=== PATIENT | male | born 1955 | race African-American/Black ===

== ENCOUNTER 2017-04-14 12:22 | Inpatient (IN) | payer BC, OTHER ==
[2017-04-14] MEDS ORDERED: NORCO 10/325 TAB PO PRN (12:38)
--- NOTE | 2017-04-14 12:42 | DR.H&P ---
H&P - History & Physical for Day of: H&P Date: 04/14/17 - Chief Complaint Chief Complaint: RIGHT EAR PAIN, FACILA SWELLING AND REDNESS - History of Present Illness History of Present Illness: PATIENT IS A 61-YEAR-OLD BLACK MALE WHO WAS A DIRECT ADMIT FROM dR. Cool'S OFFICE AFTER PRESENTING FOR FOLLOW-UP WITH A RIGHT EAR INFECTION. pATIENT WAS SEEN ON 04/01 WITH RIGHT OTITIS MEDIA AND OTITIS EXTERNA WITH PRE-AND POSTAURICULAR LYMPH NODE ENLARGEMENT. pATIENT WAS TREATED WITH im rOCEPHIN BY MOUTH cIPRO AND BY MOUTH STEROIDS WITHOUT IMPROVEMENT. tHE PATIENT FOLLOW-UP TODAY HE HAD A SIGNIFICANT AREA OF SWELLING TO THE RIGHT JAW AND RIGHT CHEEK WITH LOCALIZED REDNESS AND WARMTH. pLAN TO ADMIT FOR iv ANTIBIOTICS LABS AND BLOOD CULTURES WELL A CULTURE OF RIGHT EAR DRAINAGE. PLAN TO START HER ON iv lEVAQUIN AND zOSYN AND OBTAIN A ct OF THE FACIAL BONES - Past Medical History Past Medical History: Hypertension - Social History Does patient currently use any type of tobacco product: Yes Have you used tobacco products in the last 12 months: Yes Type of Tobacco Use: Cigarettes Does any household member use tobacco: No Alcohol Use: None Drug Use: None - Review of Systems Constitutional: Fever Eyes: No Symptoms Reported ENT: Ear Pain, Ear Discharge, Throat Swelling Respiratory: Cough Cardiovascular: No Symptoms Reported Gastrointestinal: No Symptoms Reported Genitourinary: No Symptoms Reported Musculoskeletal: No Symptoms Reported Skin: Other (REDNESS TO RIGHT CHECK, MILD CRUSTING TO RIGHT EARLOBE WITH WEEPING ) Neurological: No Symptoms Reported Oriented: Normal Eyes: Normal Ear: Right (RIGHT EAR EXTERNAL CANAL EDEMATOUS, REDNESS WITH PRE-POST ARURICULAR LYMPH NODE ENLARGEMENT), Swelling Respiratory: Rhonchi Throughout Cardiovascular: Normal : Normal Auscultation: Bowel Sounds: Normal Palpation: Normal Tenderness: Normal Skin: Normal, Red, Tender, Other (SEE ENT, RIGHT EAR ) Musculoskeletal: Normal Psychiatric: Normal Mood Description: Calm Speech Pattern: Clear, Appropriate - Assessment/Plan (1) Malignant otitis externa of right ear Qualifiers: Chronicity: C Status: Acute Plan: ADMIT FOR IV ATBX THERAPY. BLOOD AND WOUND CULTURES. PAIN CONTROL. CT FACIAL BONES (2) Facial cellulitis Status: Acute Plan: SEE ABOVE (3) Hypertension Qualifiers: Hypertension type: H Status: Acute Plan: CONTINUE HOME MEDS (4) Bronchitis Status: Acute Plan: IV ATBX, CXR ON ADMISSION
[2017-04-14] MEDS ORDERED: NS 100 ML IV + SPIKE MINIBAG* 100 ML IV ONE ×2 (13:56→22:32)
[2017-04-14 13:59] VITALS: BMI 39.3
[2017-04-14] MEDS: NORCO 10/325 TAB PO PRN ×2 (14:02→19:27)
[2017-04-14 14:04] LABS: BASOPHILS # (AUTO) 0.1 X10^3/uL (0.0-0.1); BASOPHILS % (AUTO) 0.5 % (0.2-1.0); EOSINOPHILS # (AUTO) 0.6 x10^3/uL (0.0-0.2); EOSINOPHILS % (AUTO) 4.5 % (0.9-2.9); HEMATOCRIT 39.6 % (42.0-54.0); HEMOGLOBIN 13.3 g/dL (13.5-18.0); LYMPHOCYTES # (AUTO) 2.8 X10^3/uL (1.3-2.9); LYMPHOCYTES % (AUTO) 22.5 % (21.0-51.0); MEAN CORPUSCULAR HEMOGLOBIN 29.5 pg (27.0-34.0); MEAN CORPUSCULAR HGB CONC 33.5 g/dL (33.0-35.0); MONOCYTES # (AUTO) 0.9 x10^3/uL (0.3-0.8); MONOCYTES % (AUTO) 7.5 % (0.0-13.0); PLATELET COUNT 343 X10^3/uL (150.0-450.0); RED CELL DISTRIBUTION WIDTH 13.7 % (11.6-16.5); WHITE BLOOD COUNT 12.3 X10^3/uL (3.6-10.0)
[2017-04-14 14:08] LABS: ALANINE AMINOTRANSFERASE 23 Units/L (12-78); ALKALINE PHOSPHATASE 73 Units/L (46-116); ASPARTATE AMINO TRANSFERASE 17 Units/L (15-37); BLOOD UREA NITROGEN 12 mg/dL (7-18); CALCIUM 8.9 mg/dL (8.5-10.1); CARBON DIOXIDE 28.3 mmol/L (21-32); CHLORIDE 108 mmol/L (98-107); COR CA(FOR HYPOALB) 9.7 mg/dL (8.5-10.1); CREATININE 1.15 mg/dL (0.70-1.30); GLUCOSE 95 mg/dL (65-99); SODIUM 143 mmol/L (136-145); TOTAL PROTEIN 6.7 g/dL (6.4-8.2); eGFR BLACK RACES > 60 (>60); eGFR NON BLACK RACES > 60 (>60)
--- NOTE | 2017-04-14 14:30 | CT ---
HISTORY: Right facial edema Study: Maxillofacial CT without con Comparison: None Technique : Axial non contrast images with coronal and sagittal reformats. Dose reduction procedures were use with MA/kv adjusted for body size. This examination is limited by the lack of intravenous contrast. Findings: There is skin thickening and subcutaneous fat stranding in the area of the right external auditory c anal and pre auricular area. This suggests otitis externa with some associated cellulitis. There are no drainable fluid collections identified. The remainder of the facial soft tissues are normal. The globes are intact. The retrobulbar are soft tissues are normal. The mandible, nasal bones, and faci al bones are intact as are the orbital bones. The sinuses are clear with the exception of a 1 centim eter left maxillary sinus retention cyst. The mastoid air cells are clear. The middle ear spaces are clear. The parotid glands are symmetric and normal. IMPRESSION: Findings suggestive of right-sided otitis externa with some adjacent early cellulitis. Reported By:
--- NOTE | 2017-04-14 14:34 | RAD ---
HISTORY: Cough, congestion Study: Chest one view Comparison: None Findings: The heart is within normal limits in size. The aorta is ectatic. The lungs are free of acute alveola r infiltrates. No pleural effusions are identified. There is some peribronchial thickening consisten t with bronchitis. IMPRESSION: Peribronchial thickening consistent with bronchitis Reported By:
[2017-04-14] MEDS: NS 1000 ML 1,000 ML IV SCH (14:36)
[2017-04-14] MEDS: LEVAQUIN PREMIX IV 750 MG 750 MG/150 ML BAG IV SCH (14:36)
[2017-04-14] MEDS: ZOSYN VIAL 4.5 GM IV SCH ×2 (16:23→22:37)
[2017-04-14] MEDS: PROVENTIL NEB TX 0.083% 2.5MG/ 3ML NEB PRN (16:31)
[2017-04-14] MEDS ORDERED: HYDROCHLOROTHIAZIDE 25 MG TAB ONE (17:33)
[2017-04-14] MEDS: HYDROCHLOROTHIAZIDE 25 MG TAB PO SCH (17:35)
[2017-04-14] MEDS: LOPRESSOR TAB 50 MG PO SCH (17:35)
[2017-04-14] MEDS: COLACE CAP 100 MG PO SCH (20:57)
[2017-04-14] MEDS ORDERED: COLACE CAP 100 MG PO SCH (21:00)
[2017-04-15] MEDS: NORCO 10/325 TAB PO PRN ×3 (02:36→20:36)
[2017-04-15] MEDS: NS 1000 ML 1,000 ML IV SCH ×2 (02:37→20:42)
[2017-04-15] MEDS ORDERED: NS 100 ML IV + SPIKE MINIBAG* 100 ML IV ONE (05:52)
[2017-04-15] MEDS: ZOSYN VIAL 4.5 GM IV SCH (06:04)
[2017-04-15 06:24] LABS: BASOPHILS # (AUTO) 0.1 X10^3/uL (0.0-0.1); BASOPHILS % (AUTO) 0.5 % (0.2-1.0); EOSINOPHILS # (AUTO) 0.7 x10^3/uL (0.0-0.2); EOSINOPHILS % (AUTO) 5.4 % (0.9-2.9); HEMATOCRIT 39.1 % (42.0-54.0); HEMOGLOBIN 12.9 g/dL (13.5-18.0); LYMPHOCYTES # (AUTO) 3.1 X10^3/uL (1.3-2.9); LYMPHOCYTES % (AUTO) 24.7 % (21.0-51.0); MEAN CORPUSCULAR HEMOGLOBIN 29.2 pg (27.0-34.0); MEAN CORPUSCULAR HGB CONC 32.9 g/dL (33.0-35.0); MEAN CORPUSCULAR VOLUME 88.8 fL (80.0-100.0); MEAN PLATELET VOLUME 7.4 fL (7.4-11.0); MONOCYTES # (AUTO) 0.8 x10^3/uL (0.3-0.8); MONOCYTES % (AUTO) 6.8 % (0.0-13.0); NEUTROPHILS # (AUTO) 7.8 x10^3/uL (2.2-4.8); NEUTROPHILS % (AUTO) 62.6 % (42.0-75.0); PLATELET COUNT 308 X10^3/uL (150.0-450.0); RED CELL DISTRIBUTION WIDTH 13.6 % (11.6-16.5); WHITE BLOOD COUNT 12.4 X10^3/uL (3.6-10.0)
[2017-04-15 06:39] LABS: ALANINE AMINOTRANSFERASE 20 Units/L (12-78); ALBUMIN 2.8 g/dL (3.4-5.0); ALKALINE PHOSPHATASE 72 Units/L (46-116); ASPARTATE AMINO TRANSFERASE 15 Units/L (15-37); BLOOD UREA NITROGEN 13 mg/dL (7-18); CALCIUM 8.5 mg/dL (8.5-10.1); CHLORIDE 108 mmol/L (98-107); COR CA(FOR HYPOALB) 9.5 mg/dL (8.5-10.1); COR NA(FOR HYPERGLY) 145 mmol/L (136-145); CREATININE 1.34 mg/dL (0.70-1.30); GLUCOSE 143 mg/dL (65-99); SODIUM 144 mmol/L (136-145); TOTAL PROTEIN 6.5 g/dL (6.4-8.2); eGFR BLACK RACES > 60 (>60); eGFR NON BLACK RACES 57 (>60)
[2017-04-15] MEDS ORDERED: K-RIDER 10 MEQ/NS 100 ML 10 MEQ/100 ML BAG IV PRN (06:47)
[2017-04-15] MEDS ORDERED: POTASSIUM CHLORIDE LIQ 20 MEQ UDC PO PRN (06:47)
[2017-04-15] MEDS ORDERED: K-LYTE EFFERVESCENT PO PRN (06:47)
[2017-04-15] MEDS: PROVENTIL NEB TX 0.083% 2.5MG/ 3ML NEB PRN (08:20)
[2017-04-15] MEDS: LOPRESSOR TAB 50 MG PO SCH ×2 (08:47→20:35)
[2017-04-15] MEDS: LEVAQUIN PREMIX IV 750 MG 750 MG/150 ML BAG IV SCH (08:47)
[2017-04-15] MEDS: HYDROCHLOROTHIAZIDE 25 MG TAB PO SCH (08:47)
[2017-04-15] MEDS: K-DUR TAB 20 MEQ PO PRN (08:54)
[2017-04-15] MEDS ORDERED: CONSULT PHARMACY - ANTIBIOTIC XX SCH (10:00)
[2017-04-15] MEDS: BACTROBAN OINT TOP SCH ×2 (11:08→20:42)
[2017-04-15] MEDS: NICODERM PATCH 21 MG/24 HR TD SCH (11:09)
[2017-04-15] MEDS: VANCOMYCIN HCL 500 MG VIAL 500 MG, VANCOMYCIN HCL 1 GM VIAL 1 GM in NS 250 ML IV 250 ML IV SCH ×2 (13:58→20:37)
--- NOTE | 2017-04-15 18:18 | PCM.PROG ---
Progress Note - Progress Note for Day of Date: 04/15/17 - Subjective Subjective: 61 BM ADMITTED ONE DAY AGO WITH SEVERE RIGHT OTITIS EXTERNA FACIAL CELLULITS, PT HAS PENDING WOUDN AND BLOOD CULTURES, PT CO PAIN TO RIGHT EAR. PLAN TO CONSULT PHARMACY FOR VANCOMYCIN IV DOSING, WITH CONTINUE WITH LEVAQUIN, D/C ZOSYN, TOPICAL BACTROBAN AFTER WOUND CARE. PLAN TO REPEAT AM LABS, CONTINUE BP CONTROL - Past Medical Family Social History Past Med/Fam/Surg Hx: No changes since H&P Allergies: Allergies Lisinopril Allergy (Verified 04/14/17 13:24) - Review of Systems ROS: No change since H&P - Vital Signs and I&O's Vital Signs: Temperature 98 F Pulse Rate [Left Brachial] 74 Pulse Rate [Right Brachial] 81 Pulse Rate 88 Respiratory Rate 20 Blood Pressure [Left Arm] 162/106 Blood Pressure [Right Arm] 164/85 O2 Sat by Pulse Oximetry 97 Intake and Output: Intake & Output 04/13/17 04/14/17 04/15/17 04/16/17 11:59 11:59 11:59 11:59 Intake Total 1710 960 Output Total 0 Balance 1710 960 - Physical Exam Oriented: Normal Eyes: Normal Ear: Right (RIGHT EAR EXTERNAL CANAL EDEMATOUS, REDNESS WITH PRE-POST ARURICULAR LYMPH NODE ENLARGEMENT), Swelling Respiratory: Wheezes (MILD EXP WHEEZE) Cardiovascular: Normal : Normal Auscultation: Bowel Sounds: Normal Tenderness: Normal Skin: Normal, Red, Tender, Other (SEE ENT, RIGHT EAR ) Musculoskeletal: Normal Psychiatric: Normal Mood Description: Calm Speech Pattern: Clear, Appropriate - Laboratory and Diagnostics Result Diagrams: 04/15/17 03:40 04/15/17 11:05 Labs: 04/14/17 14:44 Ear - Right Gram Stain - Final 04/14/17 14:44 Ear - Right Wound Culture - Preliminary Laboratory WBC 12.4 X10^3/uL (3.6-10.0) H 04/15/17 03:40 RBC 4.40 X10^6/uL (4.7-6.0) L 04/15/17 03:40 Hgb 12.9 g/dL (13.5-18.0) L 04/15/17 03:40 Hct 39.1 % (42.0-54.0) L 04/15/17 03:40 MCV 88.8 fL (80.0-100.0) 04/15/17 03:40 MCH 29.2 pg (27.0-34.0) 04/15/17 03:40 MCHC 32.9 g/dL (33.0-35.0) L 04/15/17 03:40 RDW 13.6 % (11.6-16.5) 04/15/17 03:40 Plt Count 308 X10^3/uL (150.0-450.0) 04/15/17 03:40 MPV 7.4 fL (7.4-11.0) 04/15/17 03:40 Neut % 62.6 % (42.0-75.0) 04/15/17 03:40 Lymph % 24.7 % (21.0-51.0) 04/15/17 03:40 [place] % 6.8 % (0.0-13.0) 04/15/17 03:40 Eos % 5.4 % (0.9-2.9) H 04/15/17 03:40 Baso % 0.5 % (0.2-1.0) 04/15/17 03:40 Neut # 7.8 x10^3/uL (2.2-4.8) H 04/15/17 03:40 Lymph # 3.1 X10^3/uL (1.3-2.9) H 04/15/17 03:40 [place] # 0.8 x10^3/uL (0.3-0.8) 04/15/17 03:40 Eos # 0.7 x10^3/uL (0.0-0.2) H 04/15/17 03:40 Baso # 0.1 X10^3/uL (0.0-0.1) 04/15/17 03:40 Absolute Nucleated RBC 0.0 /100WBC 04/15/17 03:40 Sodium 144 mmol/L (136-145) 04/15/17 03:40 Corrected Sodium 145 mmol/L (136-145) 04/15/17 03:40 Potassium 3.7 mmol/L (3.5-5.1) 04/15/17 11:05 Chloride 108 mmol/L (98-107) H 04/15/17 03:40 Carbon Dioxide 25.0 mmol/L (21-32) 04/15/17 03:40 BUN 13 mg/dL (7-18) 04/15/17 03:40 Creatinine 1.34 mg/dL (0.70-1.30) H 04/15/17 03:40 Est GFR (MDRD) Af Amer > 60 (>60) 04/15/17 03:40 Est GFR (MDRD) Non-Af 57 (>60) L 04/15/17 03:40 Glucose 143 mg/dL (65-99) H 04/15/17 03:40 Calcium 8.5 mg/dL (8.5-10.1) 04/15/17 03:40 Corrected Calcium 9.5 mg/dL (8.5-10.1) 04/15/17 03:40 Total Bilirubin 0.20 mg/dL (0.2-1.0) 04/15/17 03:40 AST 15 Units/L (15-37) 04/15/17 03:40 ALT 20 Units/L (12-78) 04/15/17 03:40 Alkaline Phosphatase 72 Units/L (46-116) 04/15/17 03:40 Total Protein 6.5 g/dL (6.4-8.2) 04/15/17 03:40 Albumin 2.8 g/dL (3.4-5.0) L 04/15/17 03:40 Globulin 3.7 g/dL (2.5-4.5) 04/15/17 03:40 Albumin/Globulin Ratio 0.8 Ratio (1.1-2.1) L 04/15/17 03:40 - Plan (1) Malignant otitis externa of right ear Status: Acute Qualifiers: Chronicity: C Plan: IV ATBX THERAPY. BLOOD AND WOUND CULTURES PENDING. PAIN CONTROL. CT FACIAL BONES ON CHART (2) Facial cellulitis Status: Acute Plan: SEE ABOVE (3) Hypertension Status: Acute Qualifiers: Hypertension type: H Plan: CONTINUE HOME MEDS (4) Bronchitis Status: Acute Plan: IV ATBX, CXR ON ADMISSION (5) Anxiety Status: Acute Plan: NICOTINE PATCH, XANAX PRN
[2017-04-15] MEDS ORDERED: NS 250 ML IV 250 ML IV ONE (20:25)
[2017-04-15] MEDS ORDERED: VANCOMYCIN HCL 500 MG VIAL ONE (20:25)
[2017-04-15] MEDS ORDERED: VANCOMYCIN HCL 1 GM VIAL ONE (20:26)
[2017-04-15] MEDS: COLACE CAP 100 MG PO SCH (20:35)
[2017-04-15] MEDS: XANAX PO PRN (20:36)
[2017-04-16 06:14] LABS: BASOPHILS # (AUTO) 0.1 X10^3/uL (0.0-0.1); BASOPHILS % (AUTO) 0.4 % (0.2-1.0); EOSINOPHILS # (AUTO) 0.7 x10^3/uL (0.0-0.2); EOSINOPHILS % (AUTO) 5.6 % (0.9-2.9); HEMATOCRIT 39.7 % (42.0-54.0); HEMOGLOBIN 13.4 g/dL (13.5-18.0); LYMPHOCYTES # (AUTO) 2.8 X10^3/uL (1.3-2.9); LYMPHOCYTES % (AUTO) 22.3 % (21.0-51.0); MEAN CORPUSCULAR HEMOGLOBIN 29.7 pg (27.0-34.0); MEAN CORPUSCULAR HGB CONC 33.9 g/dL (33.0-35.0); MEAN CORPUSCULAR VOLUME 87.7 fL (80.0-100.0); MEAN PLATELET VOLUME 7.6 fL (7.4-11.0); MONOCYTES # (AUTO) 0.8 x10^3/uL (0.3-0.8); MONOCYTES % (AUTO) 6.5 % (0.0-13.0); NEUTROPHILS # (AUTO) 8.1 x10^3/uL (2.2-4.8); NEUTROPHILS % (AUTO) 65.2 % (42.0-75.0); PLATELET COUNT 312 X10^3/uL (150.0-450.0); RED BLOOD COUNT 4.53 X10^6/uL (4.7-6.0); RED CELL DISTRIBUTION WIDTH 13.5 % (11.6-16.5); WHITE BLOOD COUNT 12.5 X10^3/uL (3.6-10.0)
[2017-04-16 06:33] LABS: ALANINE AMINOTRANSFERASE 22 Units/L (12-78); ALBUMIN 2.8 g/dL (3.4-5.0); ALKALINE PHOSPHATASE 63 Units/L (46-116); ASPARTATE AMINO TRANSFERASE 17 Units/L (15-37); BLOOD UREA NITROGEN 9 mg/dL (7-18); CALCIUM 8.5 mg/dL (8.5-10.1); CARBON DIOXIDE 25.4 mmol/L (21-32); CHLORIDE 109 mmol/L (98-107); COR CA(FOR HYPOALB) 9.5 mg/dL (8.5-10.1); COR NA(FOR HYPERGLY) 144 mmol/L (136-145); CREATININE 1.02 mg/dL (0.70-1.30); GLUCOSE 111 mg/dL (65-99); SODIUM 144 mmol/L (136-145); TOTAL PROTEIN 6.5 g/dL (6.4-8.2); eGFR BLACK RACES > 60 (>60); eGFR NON BLACK RACES > 60 (>60)
[2017-04-16] MEDS ORDERED: CLEOCIN VIAL 600 MG ONE (08:53)
[2017-04-16] MEDS: NICODERM PATCH 21 MG/24 HR TD SCH (09:13)
[2017-04-16] MEDS: LOPRESSOR TAB 50 MG PO SCH ×2 (09:14→20:40)
[2017-04-16] MEDS: NORCO 10/325 TAB PO PRN ×2 (09:14→20:39)
[2017-04-16] MEDS: HYDROCHLOROTHIAZIDE 25 MG TAB PO SCH (09:14)
[2017-04-16] MEDS: VANCOMYCIN HCL 500 MG VIAL 500 MG, VANCOMYCIN HCL 1 GM VIAL 1 GM in NS 250 ML IV 250 ML IV SCH (09:17)
[2017-04-16] MEDS: BACTROBAN OINT TOP SCH ×2 (09:21→20:41)
[2017-04-16] MEDS: NS 1000 ML 1,000 ML IV SCH (15:25)
--- NOTE | 2017-04-16 18:39 | PCM.PROG ---
Progress Note - Progress Note for Day of Date: 04/16/17 - Subjective Subjective: 61 BM ADMITTED ON 04/14 WITH SEVERE RIGHT OTITIS EXTERNA FACIAL CELLULITS, WWITH MINIMAL IMPROVEMENT THIS MORNING. pATIENT'S WOUND RESULTS WERE mrsa,ON VANCOMYCIN IV AND LEVAQUIN, TOPICAL BACTROBAN AFTER WOUND. ADD CIPRODEX OTIC. CARE. PLAN TO REPEAT AM LABS, CONTINUE BP CONTROL - Past Medical Family Social History Past Med/Fam/Surg Hx: No changes since H&P Allergies: Allergies Lisinopril Allergy (Verified 04/14/17 13:24) - Review of Systems ROS: No change since H&P - Vital Signs and I&O's Vital Signs: Temperature 97.8 F Pulse Rate [Left Brachial] 81 Pulse Rate [Right Brachial] 81 Pulse Rate 88 Respiratory Rate 20 Blood Pressure [Left Arm] 164/97 Blood Pressure [Right Arm] 164/85 O2 Sat by Pulse Oximetry 98 Intake and Output: Intake & Output 04/14/17 04/15/17 04/16/17 04/17/17 11:59 11:59 11:59 11:59 Intake Total 1710 2160 840 Output Total 0 Balance 1710 2160 840 - Physical Exam Oriented: Normal Eyes: Normal Ear: Right (RIGHT EAR EXTERNAL CANAL EDEMATOUS, REDNESS WITH PRE-POST ARURICULAR LYMPH NODE ENLARGEMENT), Swelling Respiratory: Wheezes (MILD EXP WHEEZE) Cardiovascular: Normal : Normal Auscultation: Bowel Sounds: Normal Tenderness: Normal Skin: Normal, Red, Tender, Other (SEE ENT, RIGHT EAR ) Musculoskeletal: Normal Psychiatric: Normal Mood Description: Calm Speech Pattern: Clear, Appropriate - Laboratory and Diagnostics Result Diagrams: 04/16/17 03:15 04/16/17 03:15 Labs: 04/14/17 14:44 Ear - Right Gram Stain - Final 04/14/17 14:44 Ear - Right Wound Culture - Final Staphylococcus Aureus 04/14/17 13:50 Blood Blood Culture - Preliminary 04/14/17 13:44 Blood Blood Culture - Preliminary Laboratory WBC 12.5 X10^3/uL (3.6-10.0) H 04/16/17 03:15 RBC 4.53 X10^6/uL (4.7-6.0) L 04/16/17 03:15 Hgb 13.4 g/dL (13.5-18.0) L 04/16/17 03:15 Hct 39.7 % (42.0-54.0) L 04/16/17 03:15 MCV 87.7 fL (80.0-100.0) 04/16/17 03:15 MCH 29.7 pg (27.0-34.0) 04/16/17 03:15 MCHC 33.9 g/dL (33.0-35.0) 04/16/17 03:15 RDW 13.5 % (11.6-16.5) 04/16/17 03:15 Plt Count 312 X10^3/uL (150.0-450.0) 04/16/17 03:15 MPV 7.6 fL (7.4-11.0) 04/16/17 03:15 Neut % 65.2 % (42.0-75.0) 04/16/17 03:15 Lymph % 22.3 % (21.0-51.0) 04/16/17 03:15 [place] % 6.5 % (0.0-13.0) 04/16/17 03:15 Eos % 5.6 % (0.9-2.9) H 04/16/17 03:15 Baso % 0.4 % (0.2-1.0) 04/16/17 03:15 Neut # 8.1 x10^3/uL (2.2-4.8) H 04/16/17 03:15 Lymph # 2.8 X10^3/uL (1.3-2.9) 04/16/17 03:15 [place] # 0.8 x10^3/uL (0.3-0.8) 04/16/17 03:15 Eos # 0.7 x10^3/uL (0.0-0.2) H 04/16/17 03:15 Baso # 0.1 X10^3/uL (0.0-0.1) 04/16/17 03:15 Absolute Nucleated RBC 0.0 /100WBC 04/16/17 03:15 Sodium 144 mmol/L (136-145) 04/16/17 03:15 Corrected Sodium 144 mmol/L (136-145) 04/16/17 03:15 Potassium 3.6 mmol/L (3.5-5.1) 04/16/17 03:15 Chloride 109 mmol/L (98-107) H 04/16/17 03:15 Carbon Dioxide 25.4 mmol/L (21-32) 04/16/17 03:15 BUN 9 mg/dL (7-18) 04/16/17 03:15 Creatinine 1.02 mg/dL (0.70-1.30) 04/16/17 03:15 Est GFR (MDRD) Af Amer > 60 (>60) 04/16/17 03:15 Est GFR (MDRD) Non-Af > 60 (>60) 04/16/17 03:15 Glucose 111 mg/dL (65-99) H 04/16/17 03:15 Hemoglobin A1c 6.4 % (4.5-6.2) H 04/15/17 03:40 Calcium 8.5 mg/dL (8.5-10.1) 04/16/17 03:15 Corrected Calcium 9.5 mg/dL (8.5-10.1) 04/16/17 03:15 Total Bilirubin 0.20 mg/dL (0.2-1.0) 04/16/17 03:15 AST 17 Units/L (15-37) 04/16/17 03:15 ALT 22 Units/L (12-78) 04/16/17 03:15 Alkaline Phosphatase 63 Units/L (46-116) 04/16/17 03:15 Total Protein 6.5 g/dL (6.4-8.2) 04/16/17 03:15 Albumin 2.8 g/dL (3.4-5.0) L 04/16/17 03:15 Globulin 3.7 g/dL (2.5-4.5) 04/16/17 03:15 Albumin/Globulin Ratio 0.8 Ratio (1.1-2.1) L 04/16/17 03:15 - Plan (1) Malignant otitis externa of right ear Status: Acute Qualifiers: Chronicity: C Plan: IV ATBX THERAPY. POSITIVE FOR mrsa, CONTINUE VANCOMYCIN AND lEVAQUIN, TOPICAL bACTROBAN OINTMENT, cIPRODEX OTIC DROPS TO AFFECTED EAR. PAIN CONTROL. CT FACIAL BONES ON CHART (2) Facial cellulitis Status: Acute Plan: SEE ABOVE (3) Hypertension Status: Acute Qualifiers: Hypertension type: H Plan: CONTINUE HOME MEDS (4) Bronchitis Status: Acute Plan: IV ATBX, CXR ON ADMISSION (5) Anxiety Status: Acute Plan: NICOTINE PATCH, XANAX PRN
[2017-04-16] MEDS: XANAX PO PRN (20:39)
[2017-04-16] MEDS: COLACE CAP 100 MG PO SCH (20:39)
[2017-04-16] MEDS: SOLU-Medrol 125 MG VIAL IVP SCH (21:29)
[2017-04-16] MEDS: CLEOCIN VIAL 600 MG 900 MG in D5W 50 ML IV 50 ML IV SCH (21:29)
[2017-04-16] MEDS: LEVAQUIN PREMIX IV 750 MG 750 MG/150 ML BAG IV SCH (21:29)
[2017-04-16] MEDS: CIPRODEX OTIC DROPS (EAR) AFF EAR SCH (21:37)
[2017-04-16] MEDS ORDERED: VANCOMYCIN HCL 500 MG VIAL 500 MG, VANCOMYCIN HCL 1 GM VIAL 1 GM in NS 250 ML IV 250 ML IV SCH (23:00)
[2017-04-16] MEDS: CATAPRES TAB 0.1 MG PO PRN (23:42)
[2017-04-17] MEDS: NS 1000 ML 1,000 ML IV SCH ×2 (05:45→20:58)
[2017-04-17] MEDS: CLEOCIN VIAL 600 MG 900 MG in D5W 50 ML IV 50 ML IV SCH ×3 (05:46→21:00)
[2017-04-17] MEDS: SOLU-Medrol 125 MG VIAL IVP SCH ×2 (05:46→15:08)
[2017-04-17 05:49] LABS: ALANINE AMINOTRANSFERASE 22 Units/L (12-78); ALKALINE PHOSPHATASE 68 Units/L (46-116); ASPARTATE AMINO TRANSFERASE 18 Units/L (15-37); BLOOD UREA NITROGEN 12 mg/dL (7-18); CALCIUM 9.1 mg/dL (8.5-10.1); CARBON DIOXIDE 24.6 mmol/L (21-32); CHLORIDE 107 mmol/L (98-107); COR CA(FOR HYPOALB) 9.9 mg/dL (8.5-10.1); COR NA(FOR HYPERGLY) 144 mmol/L (136-145); CREATININE 1.12 mg/dL (0.70-1.30); GLUCOSE 192 mg/dL (65-99); SODIUM 142 mmol/L (136-145); TOTAL PROTEIN 7.1 g/dL (6.4-8.2); eGFR BLACK RACES > 60 (>60); eGFR NON BLACK RACES > 60 (>60)
[2017-04-17 05:58] LABS: BASOPHILS % (AUTO) 0.2 % (0.2-1.0); EOSINOPHILS % (AUTO) 0.2 % (0.9-2.9); HEMATOCRIT 42.7 % (42.0-54.0); LYMPHOCYTES # (AUTO) 1.1 X10^3/uL (1.3-2.9); MEAN CORPUSCULAR HEMOGLOBIN 29.3 pg (27.0-34.0); MEAN CORPUSCULAR HGB CONC 32.7 g/dL (33.0-35.0); MEAN CORPUSCULAR VOLUME 89.6 fL (80.0-100.0); MEAN PLATELET VOLUME 7.4 fL (7.4-11.0); MONOCYTES # (AUTO) 0.1 x10^3/uL (0.3-0.8); MONOCYTES % (AUTO) 0.6 % (0.0-13.0); NEUTROPHILS # (AUTO) 10.4 x10^3/uL (2.2-4.8); PLATELET COUNT 337 X10^3/uL (150.0-450.0); RED BLOOD COUNT 4.76 X10^6/uL (4.7-6.0); RED CELL DISTRIBUTION WIDTH 13.7 % (11.6-16.5); WHITE BLOOD COUNT 11.6 X10^3/uL (3.6-10.0)
[2017-04-17] MEDS: LEVAQUIN PREMIX IV 750 MG 750 MG/150 ML BAG IV SCH (09:08)
[2017-04-17] MEDS: NORCO 10/325 TAB PO PRN ×2 (09:08→20:56)
[2017-04-17] MEDS: CIPRODEX OTIC DROPS (EAR) AFF EAR SCH ×2 (09:09→21:00)
[2017-04-17] MEDS: NICODERM PATCH 21 MG/24 HR TD SCH (09:09)
[2017-04-17] MEDS: LOPRESSOR TAB 50 MG PO SCH ×2 (09:09→20:57)
[2017-04-17] MEDS: HYDROCHLOROTHIAZIDE 25 MG TAB PO SCH (09:09)
[2017-04-17] MEDS: BACTROBAN OINT TOP SCH ×2 (09:09→21:00)
--- NOTE | 2017-04-17 14:20 | PCM.PROG ---
Progress Note - Subjective Subjective: 61 BM ADMITTED ON 04/14 WITH SEVERE RIGHT OTITIS EXTERNA FACIAL CELLULITS, WITH SLOW IMPROVEMENT THIS MORNING. pATIENT'S WOUND RESULTS WERE mrsa,CLINDAMYCIN IV AND LEVAQUIN, PLAN TO REPEAT AM LABS, CONTINUE BP CONTROL - Past Medical Family Social History Past Med/Fam/Surg Hx: No changes since H&P Allergies: Allergies Lisinopril Allergy (Verified 04/14/17 13:24) - Review of Systems ROS: No change since H&P - Vital Signs and I&O's Vital Signs: Temperature 97.8 F Pulse Rate [Left Brachial] 88 Pulse Rate [Right Brachial] 92 Pulse Rate 88 Respiratory Rate 20 Blood Pressure [Left Arm] 145/82 Blood Pressure [Right Arm] 149/86 O2 Sat by Pulse Oximetry 97 Intake and Output: Intake & Output 04/15/17 04/16/17 04/17/17 04/18/17 11:59 11:59 11:59 11:59 Intake Total 0 2159 2089 Output Total 0 Balance 1709 2159 2089 - Physical Exam Oriented: Normal Eyes: Normal Ear: Right (RIGHT EAR EXTERNAL CANAL EDEMATOUS, REDNESS WITH PRE-POST ARURICULAR LYMPH NODE ENLARGEMENT), Swelling Respiratory: Wheezes (MILD EXP WHEEZE) Cardiovascular: Normal : Normal Auscultation: Bowel Sounds: Normal Tenderness: Normal Skin: Normal, Red, Tender, Other (SEE ENT, RIGHT EAR ) Musculoskeletal: Normal Psychiatric: Normal Mood Description: Calm Speech Pattern: Clear, Appropriate - Laboratory and Diagnostics Result Diagrams: 04/17/17 03:25 04/17/17 03:25 Labs: 04/14/17 14:44 Ear - Right Gram Stain - Final 04/14/17 14:44 Ear - Right Wound Culture - Final Staphylococcus Aureus 04/14/17 13:50 Blood Blood Culture - Preliminary 04/14/17 13:44 Blood Blood Culture - Preliminary Laboratory WBC 11.6 X10^3/uL (3.6-10.0) H 04/17/17 03:25 RBC 4.76 X10^6/uL (4.7-6.0) 04/17/17 03:25 Hgb 14.0 g/dL (13.5-18.0) 04/17/17 03:25 Hct 42.7 % (42.0-54.0) 04/17/17 03:25 MCV 89.6 fL (80.0-100.0) 04/17/17 03:25 MCH 29.3 pg (27.0-34.0) 04/17/17 03:25 MCHC 32.7 g/dL (33.0-35.0) L 04/17/17 03:25 RDW 13.7 % (11.6-16.5) 04/17/17 03:25 Plt Count 337 X10^3/uL (150.0-450.0) 04/17/17 03:25 MPV 7.4 fL (7.4-11.0) 04/17/17 03:25 Neut % 90.0 % (42.0-75.0) H 04/17/17 03:25 Lymph % 9.0 % (21.0-51.0) L 04/17/17 03:25 [place] % 0.6 % (0.0-13.0) 04/17/17 03:25 Eos % 0.2 % (0.9-2.9) L 04/17/17 03:25 Baso % 0.2 % (0.2-1.0) 04/17/17 03:25 Neut # 10.4 x10^3/uL (2.2-4.8) H 04/17/17 03:25 Lymph # 1.1 X10^3/uL (1.3-2.9) L 04/17/17 03:25 [place] # 0.1 x10^3/uL (0.3-0.8) L 04/17/17 03:25 Eos # 0.0 x10^3/uL (0.0-0.2) 04/17/17 03:25 Baso # 0.0 X10^3/uL (0.0-0.1) 04/17/17 03:25 Absolute Nucleated RBC 0.0 /100WBC 04/17/17 03:25 Sodium 142 mmol/L (136-145) 04/17/17 03:25 Corrected Sodium 144 mmol/L (136-145) 04/17/17 03:25 Potassium 3.8 mmol/L (3.5-5.1) 04/17/17 03:25 Chloride 107 mmol/L (98-107) 04/17/17 03:25 Carbon Dioxide 24.6 mmol/L (21-32) 04/17/17 03:25 BUN 12 mg/dL (7-18) 04/17/17 03:25 Creatinine 1.12 mg/dL (0.70-1.30) 04/17/17 03:25 Est GFR (MDRD) Af Amer > 60 (>60) 04/17/17 03:25 Est GFR (MDRD) Non-Af > 60 (>60) 04/17/17 03:25 Glucose 192 mg/dL (65-99) H 04/17/17 03:25 Hemoglobin A1c 6.4 % (4.5-6.2) H 04/15/17 03:40 Calcium 9.1 mg/dL (8.5-10.1) 04/17/17 03:25 Corrected Calcium 9.9 mg/dL (8.5-10.1) 04/17/17 03:25 Total Bilirubin 0.20 mg/dL (0.2-1.0) 04/17/17 03:25 AST 18 Units/L (15-37) 04/17/17 03:25 ALT 22 Units/L (12-78) 04/17/17 03:25 Alkaline Phosphatase 68 Units/L (46-116) 04/17/17 03:25 Total Protein 7.1 g/dL (6.4-8.2) 04/17/17 03:25 Albumin 3.0 g/dL (3.4-5.0) L 04/17/17 03:25 Globulin 4.1 g/dL (2.5-4.5) 04/17/17 03:25 Albumin/Globulin Ratio 0.7 Ratio (1.1-2.1) L 04/17/17 03:25 - Plan (1) Malignant otitis externa of right ear Status: Acute Qualifiers: Chronicity: C Plan: IV ATBX THERAPY. POSITIVE FOR mrsa, D.C VANOCMYCIN LAST PM, STARTED ON CLINDAMYCIN AND CONTINUE lEVAQUIN, TOPICAL bACTROBAN OINTMENT, cIPRODEX OTIC DROPS TO AFFECTED EAR. PAIN CONTROL. CT FACIAL BONES ON CHART (2) Facial cellulitis Status: Acute Plan: SEE ABOVE (3) Hypertension Status: Acute Qualifiers: Hypertension type: H Plan: CONTINUE HOME MEDS (4) Bronchitis Status: Acute Plan: IV ATBX, CXR ON ADMISSION (5) Anxiety Status: Acute Plan: NICOTINE PATCH, XANAX PRN
[2017-04-17] MEDS: XANAX PO PRN (20:56)
[2017-04-17] MEDS: COLACE CAP 100 MG PO SCH (20:57)
[2017-04-18 05:10] LABS: BASOPHILS # (AUTO) 0.1 X10^3/uL (0.0-0.1); BASOPHILS % (AUTO) 0.3 % (0.2-1.0); EOSINOPHILS % (AUTO) 0.1 % (0.9-2.9); HEMATOCRIT 40.3 % (42.0-54.0); HEMOGLOBIN 13.4 g/dL (13.5-18.0); LYMPHOCYTES # (AUTO) 2.7 X10^3/uL (1.3-2.9); LYMPHOCYTES % (AUTO) 13.7 % (21.0-51.0); MEAN CORPUSCULAR HEMOGLOBIN 29.4 pg (27.0-34.0); MEAN CORPUSCULAR HGB CONC 33.2 g/dL (33.0-35.0); MEAN CORPUSCULAR VOLUME 88.6 fL (80.0-100.0); MEAN PLATELET VOLUME 7.4 fL (7.4-11.0); MONOCYTES # (AUTO) 1.4 x10^3/uL (0.3-0.8); MONOCYTES % (AUTO) 7.2 % (0.0-13.0); NEUTROPHILS # (AUTO) 15.4 x10^3/uL (2.2-4.8); NEUTROPHILS % (AUTO) 78.7 % (42.0-75.0); PLATELET COUNT 316 X10^3/uL (150.0-450.0); RED BLOOD COUNT 4.55 X10^6/uL (4.7-6.0); RED CELL DISTRIBUTION WIDTH 13.9 % (11.6-16.5); WHITE BLOOD COUNT 19.6 X10^3/uL (3.6-10.0)
[2017-04-18 05:21] LABS: ALANINE AMINOTRANSFERASE 22 Units/L (12-78); ALBUMIN 2.8 g/dL (3.4-5.0); ALKALINE PHOSPHATASE 66 Units/L (46-116); ASPARTATE AMINO TRANSFERASE 15 Units/L (15-37); BLOOD UREA NITROGEN 17 mg/dL (7-18); CALCIUM 8.6 mg/dL (8.5-10.1); CARBON DIOXIDE 25.5 mmol/L (21-32); CHLORIDE 108 mmol/L (98-107); COR CA(FOR HYPOALB) 9.6 mg/dL (8.5-10.1); COR NA(FOR HYPERGLY) 144 mmol/L (136-145); CREATININE 1.08 mg/dL (0.70-1.30); GLUCOSE 142 mg/dL (65-99); SODIUM 143 mmol/L (136-145); TOTAL PROTEIN 6.6 g/dL (6.4-8.2); eGFR BLACK RACES > 60 (>60); eGFR NON BLACK RACES > 60 (>60)
[2017-04-18] MEDS: CLEOCIN VIAL 600 MG 900 MG in D5W 50 ML IV 50 ML IV SCH ×3 (06:27→21:10)
[2017-04-18] MEDS: NS 1000 ML 1,000 ML IV SCH (08:55)
[2017-04-18] MEDS: NICODERM PATCH 21 MG/24 HR TD SCH (08:56)
[2017-04-18] MEDS: LEVAQUIN PREMIX IV 750 MG 750 MG/150 ML BAG IV SCH (08:56)
[2017-04-18] MEDS: LOPRESSOR TAB 50 MG PO SCH ×2 (08:56→21:10)
[2017-04-18] MEDS: HYDROCHLOROTHIAZIDE 25 MG TAB PO SCH (08:56)
[2017-04-18] MEDS: BACTROBAN OINT TOP SCH ×2 (08:57→21:08)
[2017-04-18] MEDS: CIPRODEX OTIC DROPS (EAR) AFF EAR SCH ×2 (08:57→21:07)
[2017-04-18] MEDS: PROVENTIL NEB TX 0.083% 2.5MG/ 3ML NEB PRN (09:32)
[2017-04-18] MEDS: NORCO 10/325 TAB PO PRN ×2 (13:02→21:09)
[2017-04-18] MEDS: CATAPRES TAB 0.1 MG PO PRN (18:00)
[2017-04-18] MEDS: COLACE CAP 100 MG PO SCH (21:08)
[2017-04-18] MEDS: XANAX PO PRN (21:08)
[2017-04-19] MEDS: CATAPRES TAB 0.1 MG PO PRN ×2 (04:27→13:56)
[2017-04-19] MEDS: CLEOCIN VIAL 600 MG 900 MG in D5W 50 ML IV 50 ML IV SCH ×3 (05:33→21:19)
[2017-04-19 06:50] LABS: BASOPHILS # (AUTO) 0.1 X10^3/uL (0.0-0.1); BASOPHILS % (AUTO) 0.9 % (0.2-1.0); EOSINOPHILS # (AUTO) 0.4 x10^3/uL (0.0-0.2); HEMATOCRIT 37.1 % (42.0-54.0); HEMOGLOBIN 12.3 g/dL (13.5-18.0); LYMPHOCYTES # (AUTO) 3.9 X10^3/uL (1.3-2.9); LYMPHOCYTES % (AUTO) 30.3 % (21.0-51.0); MEAN CORPUSCULAR HEMOGLOBIN 29.2 pg (27.0-34.0); MEAN CORPUSCULAR HGB CONC 33.2 g/dL (33.0-35.0); MEAN CORPUSCULAR VOLUME 87.9 fL (80.0-100.0); MEAN PLATELET VOLUME 7.3 fL (7.4-11.0); MONOCYTES # (AUTO) 0.9 x10^3/uL (0.3-0.8); MONOCYTES % (AUTO) 7.3 % (0.0-13.0); NEUTROPHILS # (AUTO) 7.5 x10^3/uL (2.2-4.8); NEUTROPHILS % (AUTO) 58.5 % (42.0-75.0); PLATELET COUNT 314 X10^3/uL (150.0-450.0); RED BLOOD COUNT 4.22 X10^6/uL (4.7-6.0); RED CELL DISTRIBUTION WIDTH 14.1 % (11.6-16.5); WHITE BLOOD COUNT 12.7 X10^3/uL (3.6-10.0)
[2017-04-19 07:06] LABS: ALANINE AMINOTRANSFERASE 22 Units/L (12-78); ALBUMIN 2.6 g/dL (3.4-5.0); ALKALINE PHOSPHATASE 55 Units/L (46-116); ASPARTATE AMINO TRANSFERASE 14 Units/L (15-37); BLOOD UREA NITROGEN 21 mg/dL (7-18); CALCIUM 8.6 mg/dL (8.5-10.1); CARBON DIOXIDE 27.8 mmol/L (21-32); CHLORIDE 108 mmol/L (98-107); COR CA(FOR HYPOALB) 9.7 mg/dL (8.5-10.1); CREATININE 1.08 mg/dL (0.70-1.30); GLUCOSE 104 mg/dL (65-99); SODIUM 142 mmol/L (136-145); TOTAL PROTEIN 5.9 g/dL (6.4-8.2); eGFR BLACK RACES > 60 (>60); eGFR NON BLACK RACES > 60 (>60)
[2017-04-19] MEDS: LOPRESSOR TAB 50 MG PO SCH ×2 (08:24→21:03)
[2017-04-19] MEDS: BACTROBAN OINT TOP SCH ×2 (08:24→21:18)
[2017-04-19] MEDS: HYDROCHLOROTHIAZIDE 25 MG TAB PO SCH (08:24)
[2017-04-19] MEDS: LEVAQUIN PREMIX IV 750 MG 750 MG/150 ML BAG IV SCH (08:24)
[2017-04-19] MEDS: CIPRODEX OTIC DROPS (EAR) AFF EAR SCH ×2 (08:25→21:18)
[2017-04-19] MEDS: NICODERM PATCH 21 MG/24 HR TD SCH (08:31)
[2017-04-19] MEDS: NORCO 10/325 TAB PO PRN (13:57)
[2017-04-19] MEDS ORDERED: CATAPRES TAB 0.1 MG PO PRN ×2 (16:53→17:03)
[2017-04-19] MEDS: NS 1000 ML 1,000 ML IV SCH (17:11)
[2017-04-19] MEDS: COLACE CAP 100 MG PO SCH (21:03)
[2017-04-20 05:28] LABS: ALANINE AMINOTRANSFERASE 21 Units/L (12-78); ALBUMIN 2.7 g/dL (3.4-5.0); ALKALINE PHOSPHATASE 59 Units/L (46-116); ASPARTATE AMINO TRANSFERASE 15 Units/L (15-37); BASOPHILS # (AUTO) 0.1 X10^3/uL (0.0-0.1); BASOPHILS % (AUTO) 0.8 % (0.2-1.0); BLOOD UREA NITROGEN 16 mg/dL (7-18); CALCIUM 8.9 mg/dL (8.5-10.1); CARBON DIOXIDE 27.5 mmol/L (21-32); CHLORIDE 107 mmol/L (98-107); COR CA(FOR HYPOALB) 9.9 mg/dL (8.5-10.1); COR NA(FOR HYPERGLY) 145 mmol/L (136-145); CREATININE 1.12 mg/dL (0.70-1.30); EOSINOPHILS # (AUTO) 0.6 x10^3/uL (0.0-0.2); GLUCOSE 135 mg/dL (65-99); HEMATOCRIT 38.1 % (42.0-54.0); HEMOGLOBIN 12.7 g/dL (13.5-18.0); LYMPHOCYTES # (AUTO) 3.4 X10^3/uL (1.3-2.9); LYMPHOCYTES % (AUTO) 27.5 % (21.0-51.0); MEAN CORPUSCULAR HEMOGLOBIN 29.1 pg (27.0-34.0); MEAN CORPUSCULAR HGB CONC 33.3 g/dL (33.0-35.0); MEAN CORPUSCULAR VOLUME 87.6 fL (80.0-100.0); MEAN PLATELET VOLUME 7.4 fL (7.4-11.0); MONOCYTES # (AUTO) 1.1 x10^3/uL (0.3-0.8); MONOCYTES % (AUTO) 8.9 % (0.0-13.0); NEUTROPHILS # (AUTO) 7.2 x10^3/uL (2.2-4.8); NEUTROPHILS % (AUTO) 57.8 % (42.0-75.0); PLATELET COUNT 326 X10^3/uL (150.0-450.0); RED BLOOD COUNT 4.35 X10^6/uL (4.7-6.0); RED CELL DISTRIBUTION WIDTH 13.9 % (11.6-16.5); SODIUM 144 mmol/L (136-145); TOTAL PROTEIN 6.2 g/dL (6.4-8.2); WHITE BLOOD COUNT 12.4 X10^3/uL (3.6-10.0); eGFR BLACK RACES > 60 (>60); eGFR NON BLACK RACES > 60 (>60)
[2017-04-20] MEDS: K-DUR TAB 20 MEQ PO PRN (06:12)
[2017-04-20] MEDS: NS 1000 ML 1,000 ML IV SCH (06:13)
[2017-04-20] MEDS: CLEOCIN VIAL 600 MG 900 MG in D5W 50 ML IV 50 ML IV SCH (06:13)
[2017-04-20] MEDS: LEVAQUIN PREMIX IV 750 MG 750 MG/150 ML BAG IV SCH (09:07)
[2017-04-20] MEDS: LOPRESSOR TAB 50 MG PO SCH (09:07)
[2017-04-20] MEDS: CIPRODEX OTIC DROPS (EAR) AFF EAR SCH (09:07)
[2017-04-20] MEDS: HYDROCHLOROTHIAZIDE 25 MG TAB PO SCH (09:07)
[2017-04-20] MEDS: NICODERM PATCH 21 MG/24 HR TD SCH (09:08)
[2017-04-20] MEDS: BACTROBAN OINT TOP SCH (09:08)
[2017-04-20 12:25] VITALS: BP 172/108
== END 2017-04-20 12:50 | disposition home or self-care (01) | DRG 603 ==
LOC: MED/SURG 12:22
PROVIDERS: ADMIT Internal Medicine; ATTEND Internal Medicine
DX: L03.211 Cellulitis of face (principal); H92.01 Otalgia, right ear; I10 Essential (primary) hypertension; J20.8 Acute bronchitis due to other specified organisms; H60.21 Malignant otitis externa, right ear; F41.8 Other specified anxiety disorders; B95.62 Methicillin resistant Staphylococcus aureus infection as the cause of diseases classified elsewhere
CPT/HCPCS: 36415; 70486; 71010; 80053; 83036; 84132; 85025; 87040; 87070; 87075; 87077; 87186; 87205; 94640; 94760; A4222; J1956; J2543; J2930; J3370; J7613; S0077

== ENCOUNTER → 2017-07-03 | Outpatient (CLI) | payer BC ==
[~2017-07-03] MED LIST: NS 100 ML IV 100 ML IV ONE
[2017-07-03 09:44] LABS: CREATININE 1.07 mg/dL (0.70-1.30)
--- NOTE | 2017-07-03 13:40 | CT ---
HISTORY: Abdominal pain with gastroenteritis Study: CT abdomen and pelvis with IV contrast Comparison: None Technique: Multiple axial images of the abdomen and pelvis were obtained from the lung bases to the pubic symph ysis with the administration of IV contrast. Sagittal and coronal reformations were provided. Findings: The visualized portions of the lung bases are unremarkable. There is a 1 centimeter low-attenuation lesion superior and posterior in the spleen. The liver and pancreas and kidneys are unremarkable. T here is a 1 centimeter low-attenuation nodule in the left adrenal gland.. The gallbladder is unremar kable in its CT appearance. No significant mesenteric lymphadenopathy or stranding can be observed. No free fluid or free air is seen within the abdomen. No bowel wall thickening or bowel dilatatio n is present. The colon is unremarkable. Specifically, there is no diverticulosis noted within the sigmoid colon. The urinary bladder is grossly unremarkable. The bony structures are grossly intact . IMPRESSION: 1. Small left adrenal adenoma and small probable cyst in the spleen. No acute disease demonstrated. Reported By:
--- NOTE | 2017-07-03 13:54 | MRI ---
History: Low back pain Study: MRI lumbar spine without contrast Findings: Sagittal and axial MR imaging through the lumbar region is performed. There is mild disc s pace narrowing and degenerative signal loss at the L3-4 and L4-5 levels. Marrow signal is uniform. T he conus terminates at about the mid body of L1. There are moderate degenerative changes at the L3-4 apophyseal joints. There is mild disc bulging with the AP dimension of the dural sac reduced to abo ut 8 millimeters. There is no foraminal narrowing. At the L4-5 level there is marked hyper trophic changes at the apophyseal joints with ligamentous th ickening and disk bulging reducing the AP diameter of the dural sac to about 5 millimeters. There is mild bilateral foraminal narrowing. At the L5-S1 level there are marked hyper trophic changes of the posterior elements with spurring at the right apophyseal joint extending into the neural foramen with mild to moderate foraminal narrow ing. There is mild foraminal narrowing on the left. Impression: There is mild degenerative disc disease at the L3-4 and L4-5 levels. Disc bulging and as sociations with hyper trophic changes of the posterior elements produces mild spinal stenosis at the L3-4 level and moderately severe spinal stenosis at the L4-5 level. Foraminal narrowing at the L4-5 and L5-S1 levels. Reported By:
== END | disposition home or self-care (01) | DRG 552 ==
LOC: RAD 09:19
PROVIDERS: ATTEND Nurse Practitioner Family
DX: M54.5 Low back pain (principal); M51.36 Other intervertebral disc degeneration, lumbar region; K52.89 Other specified noninfective gastroenteritis and colitis; K40.90 Unilateral inguinal hernia, without obstruction or gangrene, not specified as recurrent; R10.2 Pelvic and perineal pain; D35.02 Benign neoplasm of left adrenal gland; M48.06 Spinal stenosis, lumbar region
CPT/HCPCS: 36415; 72148; 74177; 82565; 84520; A4222

== ENCOUNTER 2018-07-02 10:24 | Inpatient (IN) ==
[2018-07-02 11:46] VITALS: BMI 43.3
[2018-07-02] MEDS ORDERED: PERCOCET TAB 5/325 MG PO PRN (12:02)
[2018-07-02 12:33] LABS: BASOPHILS # (AUTO) 0.1 X10^3/uL (0.0-0.1); BASOPHILS % (AUTO) 0.9 % (0.2-1.0); HEMATOCRIT 40.2 % (42.0-54.0); HEMOGLOBIN 13.7 g/dL (13.5-18.0); LYMPHOCYTES # (AUTO) 2.4 X10^3/uL (1.3-2.9); LYMPHOCYTES % (AUTO) 17.5 % (21.0-51.0); MEAN CORPUSCULAR HEMOGLOBIN 29.9 pg (27.0-34.0); MEAN CORPUSCULAR HGB CONC 34.1 g/dL (33.0-35.0); MEAN CORPUSCULAR VOLUME 87.6 fL (80.0-100.0); MEAN PLATELET VOLUME 7.3 fL (7.4-11.0); MONOCYTES # (AUTO) 1.1 x10^3/uL (0.3-0.8); MONOCYTES % (AUTO) 7.7 % (0.0-13.0); NEUTROPHILS # (AUTO) 9.2 x10^3/uL (2.2-4.8); NEUTROPHILS % (AUTO) 66.9 % (42.0-75.0); PLATELET COUNT 383 X10^3/uL (150.0-450.0); RED BLOOD COUNT 4.58 X10^6/uL (4.7-6.0); RED CELL DISTRIBUTION WIDTH 13.4 % (11.6-16.5); WHITE BLOOD COUNT 13.8 X10^3/uL (3.6-10.0)
[2018-07-02 12:45] LABS: ALANINE AMINOTRANSFERASE 39 Units/L (12-78); ALBUMIN 3.6 g/dL (3.4-5.0); ALKALINE PHOSPHATASE 97 Units/L (46-116); ASPARTATE AMINO TRANSFERASE 22 Units/L (15-37); BLOOD UREA NITROGEN 16 mg/dL (7-18); CALCIUM 9.2 mg/dL (8.5-10.1); CARBON DIOXIDE 29.5 mmol/L (21-32); CHLORIDE 103 mmol/L (98-107); CREATININE 1.02 mg/dL (0.70-1.30); SODIUM 139 mmol/L (136-145); TOTAL PROTEIN 7.8 g/dL (6.4-8.2); eGFR NON BLACK RACES > 60 (>60)
[2018-07-02] MEDS ORDERED: PHARMACY CONSULT - VANCOMYCIN XX SCH (13:00)
[2018-07-02] MEDS ORDERED: NS 250 ML IV 250 ML IV ONE (13:04)
[2018-07-02] MEDS: NS 1000 ML 1,000 ML IV SCH (13:20)
[2018-07-02] MEDS: VANCOMYCIN HCL 1 GM VIAL 1 G in D5W 250 ML IV 250 ML IV SCH ×2 (13:25→21:38)
--- NOTE | 2018-07-02 13:32 | RAD ---
Exam: Portable chest History: 62-year-old male with facial cellulitis Comparison: Previous chest radiograph from 04/14/2017 Findings: Mild cardiomegaly is seen. Thoracic aorta is tortuous. No significant vascular congestion. Lungs are clear with no infiltrate or significant effusion on either side. Impression: Mild cardiomegaly. However no acute superimposed abnormality is seen. Reported By:
[2018-07-02] MEDS: ZOSYN VIAL 3.375 GRAMS 3.375 G in NS 100 ML IV + SPIKE MINIBAG* 100 ML IV SCH ×3 (14:51→21:38)
[2018-07-02] MEDS ORDERED: BENADRYL CAP 50 MG PO PRN (15:15)
[2018-07-02] MEDS ORDERED: METOPROLOL TARTRATE PO SCH (15:15)
--- NOTE | 2018-07-02 15:22 | DR.H&P ---
H&P - History & Physical for Day of: H&P Date: 07/02/18 - Chief Complaint Chief Complaint: SWELLING TO FACE, REDNESS PAIN TENDERNESS, WITH DRAINAGE FROM SKIN - History of Present Illness History of Present Illness: 62 BM DIRECT ADMIT FROM DR JUSTIN OFFICE WITH DIFFUSE FACIAL CELLULITIS. PT WAS PREVIOUSLY SEEN IN THE ER WITH NEW ONSET ANGIO EDEMA, PERIORAL SWELLING WITH RASH FROM WHAT APPEARED TO START OUT HAS INGROWN HAIR, THEN PROGESS TO WEEPING, WITH HONEY CRUST IMPETIGO APPEARANCE. PT WAS TREATED ON PO ANTIBIOTICS, BACTRIM AND PCN. PT ALSO RECIEVED 3 DAYS IM ROCEPHIN WITH SLIGHT IMPROVEMENT FOR 2-3 DAYS THEN WORSENED. SWELLING ADVANCED TO NOSE AND CHEEKS. PT CO PAIN AND URBINA. PT HAS PMH OF HTN AND BORDERLINE DM. PT DENIES ANY KNOWN INJURY. - Past Medical History Past Medical History: Arthritis, Hypertension - Family History Family Medical History: Diabetes Mellitus, Cancer, [place] - Social History Does patient currently use any type of tobacco product: No Have you used tobacco products in the last 12 months: No Type of Tobacco Use: None Does any household member use tobacco: No Alcohol Use: Occasionally Drug Use: None - Medications Home Medications: lisinopril Allergy (Verified 06/20/18 14:14) - Review of Systems Constitutional: Fever, Chills Eyes: Eyelid Inflammation, Redness ENT: Nose Pain, Nose Discharge, Nose Congestion, Mouth Swelling Respiratory: No Symptoms Reported Cardiovascular: No Symptoms Reported Gastrointestinal: Nausea Genitourinary: No Symptoms Reported Musculoskeletal: No Symptoms Reported Skin: Rash Neurological: No Symptoms Reported - Physical Exam Vital Signs: Temperature 97.6 F Pulse Rate [Right Brachial] 92 Respiratory Rate 16 Blood Pressure [Left Arm] 190/109 Blood Pressure [Right Arm] 163/85 Blood Pressure 170/88 O2 Sat by Pulse Oximetry 98 Oriented: Normal Eyes: Normal, Redness Ear: Swelling Nose: Other (DIFFUSE EXTERNAL SWELLING, INFERIOR TURBINATE RED AND EDEMATOUS) Throat: Normal Respiratory: RUL Exp. Wheeze Cardiovascular: Normal : Normal Auscultation: Bowel Sounds: Normal Palpation: Normal Skin: Rash, Red, Tender (DIFFUSE REDNESS REDNESS, SWELLING AND YELLOW, HONEY COLORED WEEPING), Hot Musculoskeletal: Normal Psychiatric: Anxiety Affect: Anxious Speech Pattern: Clear, Appropriate - Assessment/Plan (1) Facial cellulitis Status: Acute Plan: ADMIT, BLOOD AND WOUND/ DISCHARGE CULTURES, ADMISSION LABS CBC CMP, CXR. VERIFY HOME MEDS. IV ATBX THERAPY, BENADRYL, ZANTAC, KEEP FACE CLEAN AND DRY. BP CONTROL. PAIN CONTROL, INCREASE PO HYDRATION. REPEAT AM LABS (2) Hypertension Status: Acute (3) Angioedema Status: Acute (4) Facial pain, acute Status: Acute - Allergies Allergies/Adverse Reactions: Allergies Allergy/AdvReac Type Severity Reaction Status Date / Time lisinopril Allergy Verified 06/20/18 14:14
[2018-07-02] MEDS ORDERED: APRESOLINE INJ 20 MG VIAL IVP PRN (15:31)
[2018-07-02] MEDS: ZANTAC PO SCH ×2 (15:35→21:38)
[2018-07-02] MEDS ORDERED: CATAPRES TAB 0.1 MG PO PRN (18:52)
[2018-07-02] MEDS: PERCOCET TAB 5/325 MG PO PRN ×2 (20:30→23:45)
[2018-07-02] MEDS: COLACE CAP 100 MG PO SCH (21:00)
[2018-07-02] MEDS: SOLU-Medrol 40 MG VIAL IVP SCH (21:38)
[2018-07-02] MEDS: LOPRESSOR TAB 50 MG PO SCH (21:38)
[2018-07-02] MEDS: BENADRYL INJ 50 MG VIAL IVP PRN (23:45)
[2018-07-03] MEDS: SOLU-Medrol 40 MG VIAL IVP SCH ×2 (05:43→14:25)
[2018-07-03] MEDS: VANCOMYCIN HCL 1 GM VIAL 1 G in D5W 250 ML IV 250 ML IV SCH ×3 (05:44→22:10)
[2018-07-03] MEDS: ZOSYN VIAL 3.375 GRAMS 3.375 G in NS 100 ML IV + SPIKE MINIBAG* 100 ML IV SCH ×3 (05:44→22:07)
[2018-07-03 06:17] LABS: BASOPHILS % (AUTO) 0.3 % (0.2-1.0); EOSINOPHILS # (AUTO) 0.1 x10^3/uL (0.0-0.2); EOSINOPHILS % (AUTO) 0.5 % (0.9-2.9); HEMATOCRIT 40.3 % (42.0-54.0); HEMOGLOBIN 13.9 g/dL (13.5-18.0); LYMPHOCYTES # (AUTO) 1.1 X10^3/uL (1.3-2.9); LYMPHOCYTES % (AUTO) 7.5 % (21.0-51.0); MEAN CORPUSCULAR HGB CONC 34.5 g/dL (33.0-35.0); MEAN CORPUSCULAR VOLUME 86.9 fL (80.0-100.0); MEAN PLATELET VOLUME 7.4 fL (7.4-11.0); MONOCYTES # (AUTO) 0.1 x10^3/uL (0.3-0.8); MONOCYTES % (AUTO) 0.9 % (0.0-13.0); NEUTROPHILS # (AUTO) 12.8 x10^3/uL (2.2-4.8); NEUTROPHILS % (AUTO) 90.8 % (42.0-75.0); PLATELET COUNT 394 X10^3/uL (150.0-450.0); RED BLOOD COUNT 4.64 X10^6/uL (4.7-6.0); RED CELL DISTRIBUTION WIDTH 13.9 % (11.6-16.5); WHITE BLOOD COUNT 14.1 X10^3/uL (3.6-10.0)
[2018-07-03 06:30] LABS: PLATELET MORPHOLOGY COMMENT NORMAL (NORMAL)
[2018-07-03 06:33] LABS: ALANINE AMINOTRANSFERASE 35 Units/L (12-78); ALBUMIN 3.1 g/dL (3.4-5.0); ALKALINE PHOSPHATASE 93 Units/L (46-116); ASPARTATE AMINO TRANSFERASE 17 Units/L (15-37); BLOOD UREA NITROGEN 13 mg/dL (7-18); CALCIUM 8.8 mg/dL (8.5-10.1); CHLORIDE 104 mmol/L (98-107); COR CA(FOR HYPOALB) 9.5 mg/dL (8.5-10.1); COR NA(FOR HYPERGLY) 139 mmol/L (136-145); SODIUM 137 mmol/L (136-145); TOTAL PROTEIN 7.2 g/dL (6.4-8.2); eGFR NON BLACK RACES > 60 (>60)
[2018-07-03] MEDS: HYDROCHLOROTHIAZIDE 25 MG TAB PO SCH (08:41)
[2018-07-03] MEDS: LOPRESSOR TAB 50 MG PO SCH ×2 (08:41→20:44)
[2018-07-03] MEDS: ZANTAC PO SCH ×2 (08:42→20:44)
[2018-07-03] MEDS ORDERED: HYDROCHLOROTHIAZIDE PO SCH (09:00)
[2018-07-03] MEDS ORDERED: EUCERIN ONE (12:20)
[2018-07-03] MEDS ORDERED: AQUAPHOR TOP PRN (12:21)
[2018-07-03] MEDS ORDERED: PHARMACY COMMENT IV NR (13:30)
[2018-07-03 15:16] LABS: CREATININE 1.22 mg/dL (0.70-1.30); VANCOMYCIN,TROUGH 6.4 ug/mL (15-20)
[2018-07-03] MEDS: COLACE CAP 100 MG PO SCH (20:43)
[2018-07-03] MEDS: BENADRYL INJ 50 MG VIAL IVP PRN (21:47)
[2018-07-04 05:19] LABS: BASOPHILS # (AUTO) 0.1 X10^3/uL (0.0-0.1); BASOPHILS % (AUTO) 0.2 % (0.2-1.0); HEMATOCRIT 39.2 % (42.0-54.0); LYMPHOCYTES % (AUTO) 7.1 % (21.0-51.0); MEAN CORPUSCULAR HEMOGLOBIN 29.3 pg (27.0-34.0); MEAN CORPUSCULAR HGB CONC 33.2 g/dL (33.0-35.0); MEAN CORPUSCULAR VOLUME 88.1 fL (80.0-100.0); MEAN PLATELET VOLUME 7.7 fL (7.4-11.0); MONOCYTES % (AUTO) 7.1 % (0.0-13.0); NEUTROPHILS # (AUTO) 24.6 x10^3/uL (2.2-4.8); NEUTROPHILS % (AUTO) 85.6 % (42.0-75.0); PLATELET COUNT 405 X10^3/uL (150.0-450.0); RED BLOOD COUNT 4.45 X10^6/uL (4.7-6.0); RED CELL DISTRIBUTION WIDTH 14.1 % (11.6-16.5); WHITE BLOOD COUNT 28.8 X10^3/uL (3.6-10.0)
[2018-07-04] MEDS: ZOSYN VIAL 3.375 GRAMS 3.375 G in NS 100 ML IV + SPIKE MINIBAG* 100 ML IV SCH ×3 (05:28→23:23)
[2018-07-04] MEDS: VANCOMYCIN HCL 1 GM VIAL 1 G in D5W 250 ML IV 250 ML IV SCH ×3 (05:28→22:37)
[2018-07-04 05:38] LABS: ALANINE AMINOTRANSFERASE 30 Units/L (12-78); ALBUMIN 3.2 g/dL (3.4-5.0); ALKALINE PHOSPHATASE 95 Units/L (46-116); ASPARTATE AMINO TRANSFERASE 10 Units/L (15-37); BLOOD UREA NITROGEN 15 mg/dL (7-18); CALCIUM 8.8 mg/dL (8.5-10.1); CARBON DIOXIDE 25.2 mmol/L (21-32); CHLORIDE 106 mmol/L (98-107); COR CA(FOR HYPOALB) 9.4 mg/dL (8.5-10.1); COR NA(FOR HYPERGLY) 143 mmol/L (136-145); CREATININE 1.18 mg/dL (0.70-1.30); SODIUM 140 mmol/L (136-145); TOTAL PROTEIN 7.1 g/dL (6.4-8.2); eGFR NON BLACK RACES > 60 (>60)
[2018-07-04 06:00] LABS: BAND NEUTROPHILS % 3 % (0-10); PLATELET MORPHOLOGY COMMENT NORMAL (NORMAL)
[2018-07-04] MEDS: NS 1000 ML 1,000 ML IV SCH ×2 (06:50→13:15)
[2018-07-04] MEDS: HYDROCHLOROTHIAZIDE 25 MG TAB PO SCH (08:22)
[2018-07-04] MEDS: ZANTAC PO SCH ×2 (08:22→20:22)
[2018-07-04] MEDS: LOPRESSOR TAB 50 MG PO SCH ×2 (08:22→20:22)
[2018-07-04] MEDS: PREDNISONE TAB 5 MG PO SCH (13:15)
[2018-07-04] MEDS ORDERED: PHARMACY COMMENT IV NR (13:30)
[2018-07-04] MEDS: COLACE CAP 100 MG PO SCH (20:03)
[2018-07-04 22:18] LABS: CREATININE 1.25 mg/dL (0.70-1.30); VANCOMYCIN,TROUGH 11.8 ug/mL (15-20)
[2018-07-05] MEDS: VANCOMYCIN HCL 1 GM VIAL 1 G in D5W 250 ML IV 250 ML IV SCH (05:12)
[2018-07-05 05:25] LABS: BASOPHILS # (AUTO) 0.1 X10^3/uL (0.0-0.1); BASOPHILS % (AUTO) 0.6 % (0.2-1.0); EOSINOPHILS # (AUTO) 0.3 x10^3/uL (0.0-0.2); EOSINOPHILS % (AUTO) 1.6 % (0.9-2.9); HEMATOCRIT 37.2 % (42.0-54.0); HEMOGLOBIN 12.5 g/dL (13.5-18.0); LYMPHOCYTES # (AUTO) 3.9 X10^3/uL (1.3-2.9); LYMPHOCYTES % (AUTO) 21.2 % (21.0-51.0); MEAN CORPUSCULAR HEMOGLOBIN 29.3 pg (27.0-34.0); MEAN CORPUSCULAR HGB CONC 33.6 g/dL (33.0-35.0); MEAN CORPUSCULAR VOLUME 87.3 fL (80.0-100.0); MEAN PLATELET VOLUME 7.4 fL (7.4-11.0); MONOCYTES # (AUTO) 1.5 x10^3/uL (0.3-0.8); MONOCYTES % (AUTO) 8.1 % (0.0-13.0); NEUTROPHILS # (AUTO) 12.6 x10^3/uL (2.2-4.8); NEUTROPHILS % (AUTO) 68.5 % (42.0-75.0); PLATELET COUNT 371 X10^3/uL (150.0-450.0); RED BLOOD COUNT 4.26 X10^6/uL (4.7-6.0); RED CELL DISTRIBUTION WIDTH 14.1 % (11.6-16.5); WHITE BLOOD COUNT 18.4 X10^3/uL (3.6-10.0)
[2018-07-05 05:47] LABS: ALANINE AMINOTRANSFERASE 34 Units/L (12-78); ALBUMIN 2.9 g/dL (3.4-5.0); ALKALINE PHOSPHATASE 77 Units/L (46-116); ASPARTATE AMINO TRANSFERASE 15 Units/L (15-37); BLOOD UREA NITROGEN 14 mg/dL (7-18); CALCIUM 8.5 mg/dL (8.5-10.1); CARBON DIOXIDE 27.9 mmol/L (21-32); CHLORIDE 107 mmol/L (98-107); COR CA(FOR HYPOALB) 9.4 mg/dL (8.5-10.1); COR NA(FOR HYPERGLY) 142 mmol/L (136-145); CREATININE 1.07 mg/dL (0.70-1.30); SODIUM 141 mmol/L (136-145); TOTAL PROTEIN 6.5 g/dL (6.4-8.2); eGFR NON BLACK RACES > 60 (>60)
[2018-07-05] MEDS: ZOSYN VIAL 3.375 GRAMS 3.375 G in NS 100 ML IV + SPIKE MINIBAG* 100 ML IV SCH (06:09)
[2018-07-05] MEDS: ZANTAC PO SCH (08:52)
[2018-07-05] MEDS: PREDNISONE TAB 5 MG PO SCH (08:52)
[2018-07-05] MEDS: LOPRESSOR TAB 50 MG PO SCH (08:52)
[2018-07-05] MEDS: HYDROCHLOROTHIAZIDE 25 MG TAB PO SCH (08:52)
[2018-07-05 11:46] VITALS: BP 179/98
--- NOTE | 2018-07-25 17:32 | PCM.DCPLAN ---
Discharge Summary - Admission Date Date of Admission: 07/02/18 - Discharge Date Discharge Date: 07/05/18 - Admission Diagnoses (1) Facial cellulitis Status: Acute (2) Facial pain, acute Status: Acute - Discharge Diagnoses Discharge Diagnosis: SAME ADMISSION DIAGNOSIS - Discharge Medications Discharge Medications: Home Medication List methylprednisolone [Medrol (Ron)] 0 tab PO PER PKG DIR #21 ea 07/05/18 [Rx] sulfamethoxazole-trimethoprim [Bactrim DS] 1 tab PO Q12H #20 tab 07/05/18 [Rx] Prescriptions: methylprednisolone [Medrol (Ron)] THIERNO,MANPREET sulfamethoxazole-trimethoprim [Bactrim DS] THIERNO,MANPREET - Hospital Course Vital Signs: Temperature 97.6 F Pulse Rate [Right Brachial] 66 Respiratory Rate 18 Blood Pressure [Left Arm] 169/93 Blood Pressure [Right Arm] 140/77 Blood Pressure 170/88 O2 Sat by Pulse Oximetry 99 Latest Lab Results: Laboratory Last Values WBC 18.4 X10^3/uL (3.6-10.0) H D 07/05/18 04:42 RBC 4.26 X10^6/uL (4.7-6.0) L 07/05/18 04:42 Hgb 12.5 g/dL (13.5-18.0) L 07/05/18 04:42 Hct 37.2 % (42.0-54.0) L 07/05/18 04:42 MCV 87.3 fL (80.0-100.0) 07/05/18 04:42 MCH 29.3 pg (27.0-34.0) 07/05/18 04:42 MCHC 33.6 g/dL (33.0-35.0) 07/05/18 04:42 RDW 14.1 % (11.6-16.5) 07/05/18 04:42 Plt Count 371 X10^3/uL (150.0-450.0) 07/05/18 04:42 Plt Count Comment Adequate (ADEQUATE) 07/04/18 04:25 MPV 7.4 fL (7.4-11.0) 07/05/18 04:42 Neut % (Auto) 68.5 % (42.0-75.0) 07/05/18 04:42 Lymph % (Auto) 21.2 % (21.0-51.0) 07/05/18 04:42 [place] % (Auto) 8.1 % (0.0-13.0) 07/05/18 04:42 Eos % (Auto) 1.6 % (0.9-2.9) 07/05/18 04:42 Baso % (Auto) 0.6 % (0.2-1.0) 07/05/18 04:42 Neut # (Auto) 12.6 x10^3/uL (2.2-4.8) H 07/05/18 04:42 Lymph # (Auto) 3.9 X10^3/uL (1.3-2.9) H 07/05/18 04:42 [place] # (Auto) 1.5 x10^3/uL (0.3-0.8) H 07/05/18 04:42 Eos # (Auto) 0.3 x10^3/uL (0.0-0.2) H 07/05/18 04:42 Baso # (Auto) 0.1 X10^3/uL (0.0-0.1) 07/05/18 04:42 Absolute Nucleated RBC 0.0 /100WBC 07/05/18 04:42 Total Counted 100 07/04/18 04:25 Neutrophils % (Manual) 79 % (39-76) H 07/04/18 04:25 Band Neutrophils % 3 % (0-10) 07/04/18 04:25 Lymphocytes % (Manual) 10 % (13-43) L 07/04/18 04:25 Monocytes % (Manual) 8 % (4-9) 07/04/18 04:25 Plt Morphology Comment Normal (NORMAL) 07/04/18 04:25 RBC Morphology Normal (NORMAL) 07/04/18 04:25 Sodium 141 mmol/L (136-145) 07/05/18 04:42 Corrected Sodium 142 mmol/L (136-145) 07/05/18 04:42 Potassium 3.5 mmol/L (3.5-5.1) 07/05/18 04:42 Chloride 107 mmol/L (98-107) 07/05/18 04:42 Carbon Dioxide 27.9 mmol/L (21-32) 07/05/18 04:42 BUN 14 mg/dL (7-18) 07/05/18 04:42 Creatinine 1.07 mg/dL (0.70-1.30) 07/05/18 04:42 Est GFR (MDRD) Af Amer > 60 (>60) 07/05/18 04:42 Est GFR (MDRD) Non-Af > 60 (>60) 07/05/18 04:42 Glucose 161 mg/dL (65-99) H 07/05/18 04:42 Calcium 8.5 mg/dL (8.5-10.1) 07/05/18 04:42 Corrected Calcium 9.4 mg/dL (8.5-10.1) 07/05/18 04:42 Total Bilirubin 0.10 mg/dL (0.2-1.0) L 07/05/18 04:42 AST 15 Units/L (15-37) 07/05/18 04:42 ALT 34 Units/L (12-78) 07/05/18 04:42 Alkaline Phosphatase 77 Units/L (46-116) 07/05/18 04:42 Total Protein 6.5 g/dL (6.4-8.2) 07/05/18 04:42 Albumin 2.9 g/dL (3.4-5.0) L 07/05/18 04:42 Globulin 3.6 g/dL (2.5-4.5) 07/05/18 04:42 Albumin/Globulin Ratio 0.8 Ratio (1.1-2.1) L 07/05/18 04:42 Vancomycin Trough 11.8 ug/mL (15-20) L 07/04/18 21:50 Staph aureus (PCR) Negative (NEGATIVE) 07/03/18 18:07 MRSA (PCR) Negative (NEGATIVE) 07/03/18 18:07 Hospital Course: 63 BM DIRECT ADMIT FROM DR JUSTIN OFFICE WITH DIFFUSE FACIAL CELLULITIS. PT WAS PREVIOUSLY SEEN IN THE ER WITH NEW ONSET ANGIO EDEMA, PERIORAL SWELLING WITH RASH FROM WHAT APPEARED TO START OUT HAS INGROWN HAIR, THEN PROGESS TO WEEPING, WITH HONEY CRUST IMPETIGO APPEARANCE. PT WAS TREATED ON PO ANTIBIOTICS , BACTRIM AND PCN. PT ALSO RECIEVED 3 DAYS IM ROCEPHIN WITH SLIGHT IMPROVEMENT FOR 2-3 DAYS THEN WORSENED. SWELLING ADVANCED TO NOSE AND CHEEKS. PT CO PAIN AND URBINA. PT HAS PMH OF HTN AND BORDERLINE DM. PT DENIES ANY KNOWN INJURY. PATIENT TREATED WITH IV ANTIBIOTICS. DID HAVE IMPROVEMENT AND WAS DISCHARGED HOME. - Discharge Plan Disposition: 01 HOME, SELF-CARE Condition: Stable Prescriptions: methylprednisolone [Medrol (Ron)] 0 tab PO PER PKG DIR #21 ea sulfamethoxazole-trimethoprim [Bactrim DS] 1 tab PO Q12H #20 tab - Follow ups/Referrals Follow ups/Referrals: MANPREET PA [Nurse Practitioner] - 07/12/18 2:30 pm - Instructions Instructions: Antibiotic Medicine, Adult, [id number], Cellulitis, Adult, Easy -to-Read, Hypertension, [id number] Forms: Patient Portal
== END 2018-07-05 14:06 | disposition home or self-care (01) | DRG 603 ==
LOC: OBS 10:58 → MED/SURG 16:55
PROVIDERS: ADMIT Internal Medicine; ATTEND Internal Medicine
DX: R51 Headache; L03.211 Cellulitis of face; T78.3XXA Angioneurotic edema, initial encounter; I10 Essential (primary) hypertension
CPT/HCPCS: 36415; 71010; 71045; 80053; 80202; 82565; 85025; 87040; 87070; 87075; 87205; 87640; 87641; 99231; A4222; J0360; J1200; J2543; J2920; J3370; J7030; J7050; J7060; J7512